=== PATIENT | female | born 1935 | race Caucasian/White ===

== ENCOUNTER 2024-06-14 16:37 | Inpatient (IN) | payer OTHER, MEDICARE, MEDICAID ==
[~2024-06-14] VITALS: Ht 160 cm; Wt 68.0 kg
[2024-06-14] MEDS: ipratropium/albuterol 3ml nebule NEB ONE (17:07)
[2024-06-14 17:12] VITALS: PULSE 114; RESP 30
[2024-06-14 17:12] LABS: EOSINOPHILS % (AUTO) 0.1 % (0-6); HEMOGLOBIN 11.9 g/dl (12.0-16.0); LYMPHOCYTES # (AUTO) 0.4 X10'3 (1.1-4.8); PLATELET COUNT 204 X10'3 (140-440); WHITE BLOOD COUNT 8.9 X10'3 (4.5-11.0)
[2024-06-14 17:14] VITALS: PULSE 130; RESP 32; O2SAT 98
[2024-06-14 17:14] LABS: BASOPHILS % (AUTO) 0.4 % (0-1); HEMATOCRIT 36.4 % (35.0-45.0); LYMPHOCYTES % (AUTO) 4.8 % (21-51); MEAN CORPUSCULAR HEMOGLOBIN 29.3 PG (27.0-31.0); MEAN CORPUSCULAR HGB CONC 32.5 g/dL (33.0-36.5); MEAN CORPUSCULAR VOLUME 90.2 FL (78-98); MEAN PLATELET VOLUME 8.8 FL (7.4-10.4); MONOCYTES # (AUTO) 1.5 X10'3 (0-0.9); MONOCYTES % (AUTO) 16.3 % (2-12); NEUTROPHILS % (AUTO) 78.4 % (42-75); RED BLOOD COUNT 4.04 X10'6 (4.20-5.60); RED CELL DISTRIBUTION WIDTH 16.9 % (11.5-14.5)
[2024-06-14 17:29] LABS: TOTAL CELLS COUNTED 100
[2024-06-14 17:31] LABS: ANISOCYTOSIS 1+; GIANT PLATELET FEW; PLATELET ESTIMATE NORMAL
[2024-06-14 17:33] LABS: ALBUMIN 2.9 G/DL (3.4-5.0); ANION GAP 9 (8-16); BLOOD UREA NITROGEN 37 MG/DL (7-18); BUN/CREATININE RATIO 29.4 (10.0-20.0); CALCIUM 8.9 MG/DL (8.5-10.1); CHLORIDE 103 MMOL/L (99-107); CREATININE 1.26 MG/DL (0.40-0.90); GLUCOSE 166 MG/DL (70-104); PRO BRAIN NATRIURETIC PEPTIDE 16671 PG/ML (0-450); SODIUM 143 MMOL/L (135-145); TOTAL CARBON DIOXIDE 31.4 MMOL/L (24-32); eCRCL 26 ML/MIN; eGFR 40 ML/MIN
[2024-06-14 17:34] LABS: POTASSIUM 5.6 MMOL/L (3.5-5.1)
[2024-06-14] MEDS: methylPREDNISolone sod succ 125mg/2ml vial IV ONE (17:40)
[2024-06-14] MEDS: normal saline 1000ml 1,000 ML IV ONE (17:41)
[2024-06-14] MEDS ORDERED: acetaminophen 325mg tablet PO PRN (18:05)
[2024-06-14] MEDS ORDERED: LORazepam 2 mg/ml vial IV PRN (18:05)
[2024-06-14] MEDS: scopolamine 1MG/72H patch 1 PATCH PATCH.TD.3 TD SCH (19:02)
[2024-06-14] MEDS ORDERED: MULT-1085 PO (19:39)
[2024-06-14] MEDS ORDERED: ACET-890 PO (19:39)
[2024-06-14] MEDS ORDERED: BISA10SU60 RC (19:39)
[2024-06-14] MEDS ORDERED: MELA5TAB66 PO (19:39)
[2024-06-14] MEDS ORDERED: OXYB5TAB21 PO (19:39)
[2024-06-14] MEDS ORDERED: GUAI600T45 PO (19:39)
[2024-06-14] MEDS ORDERED: BUDE10.22 INH (19:39)
[2024-06-14] MEDS ORDERED: BISO10TA16 PO (19:39)
[2024-06-14] MEDS ORDERED: IPRA3AMP31 NEB (19:39)
[2024-06-14] MEDS ORDERED: TUBE5VIA3 TD (19:39)
[2024-06-14] MEDS ORDERED: LORA-268 PO (19:39)
[2024-06-14] MEDS ORDERED: OMEP40CA21 PO (19:39)
[2024-06-14] MEDS ORDERED: IPRA3AMP31 IH (19:39)
[2024-06-14] MEDS ORDERED: ATOR40TA72 PO (19:39)
[2024-06-14] MEDS ORDERED: NITR0.4T51 SL (19:39)
[2024-06-14] MEDS ORDERED: DULO30CA52 PO (19:39)
[2024-06-14] MEDS ORDERED: MAGN400O6 PO (19:39)
[2024-06-14] MEDS ORDERED: NA P230E (19:39)
[2024-06-14] MEDS ORDERED: MIRT7.5T11 PO (19:39)
[2024-06-14] MEDS ORDERED: DOCU100C40 PO (19:39)
[2024-06-14] MEDS ORDERED: FOLI0.4T6 PO (19:39)
[2024-06-14] MEDS ORDERED: DICL20GE TOP (19:39)
[2024-06-14] MEDS: docusate sod 100mg capsule PO SCH (20:00)
[2024-06-14] MEDS: sennosides/docusate sodium tablet PO SCH (20:00)
[2024-06-14] MEDS: morphine 10mg/0.5ml (conc. morphine) oral syringe PO PRN (20:51)
[2024-06-14 20:52] VITALS: BP 127/78; PULSE 94; RESP 30; TEMP 98.6; O2SAT 94
[2024-06-14] MEDS: morphine 10mg/ml inj. IV PRN (21:48)
[2024-06-14 22:30] VITALS: RESP 33; O2SAT 94
[2024-06-14 23:54] VITALS: RESP 26
== END 2024-06-15 06:35 | DRG 291 ==
LOC: ER 16:38 → ED HOLD 17:47 → SUR 3N 20:48
PROVIDERS: ADMIT Family Medicine; ATTEND Family Medicine
DX: I11.0 Hypertensive heart disease with heart failure (principal); J96.21 Acute and chronic respiratory failure with hypoxia; J44.1 Chronic obstructive pulmonary disease with (acute) exacerbation; N17.9 Acute kidney failure, unspecified; I50.9 Heart failure, unspecified; I25.10 Atherosclerotic heart disease of native coronary artery without angina pectoris; J44.9 Chronic obstructive pulmonary disease, unspecified; F03.90 Unspecified dementia, unspecified severity, without behavioral disturbance, psychotic disturbance, mood disturbance, and anxiety; Z66 Do not resuscitate; M06.9 Rheumatoid arthritis, unspecified; I48.91 Unspecified atrial fibrillation; E87.5 Hyperkalemia; Z51.5 Encounter for palliative care; Z88.0 Allergy status to penicillin; Z88.1 Allergy status to other antibiotic agents
CPT/HCPCS: 36415; 71045; 80048; 83605; 83880; 85007; 85025; 93005; 94640; 96374; 96375; 99285; C1758; G0378; J2274; J2919; J7030